=== PATIENT | male | born 1980 | race Two or more races ===

== ENCOUNTER 2022-10-16 18:09 | Emergency (ER) | payer SELFPAY ==
[~2022-10-16] VITALS: Ht 162.6 cm; Wt 95.5 kg
[2022-10-16 21:08] VITALS: BP 130/60; PULSE 77; RESP 18; TEMP 98.5
[2022-10-16] MEDS ORDERED: HYDROCODONE/ACETAMINOPHEN 5-325 MG TABLET PO ONE (21:15)
[2022-10-16] MEDS ORDERED: KETOROLAC TROMETHAMINE 60 MG/2 ML VIAL IM ONE (21:15)
[2022-10-16] MEDS ORDERED: IBUP-1554 PO (22:06)
== END 2022-10-16 22:22 | disposition home or self-care (01) ==
LOC: EMS 18:09
DX: S93.402A Sprain of unspecified ligament of left ankle, initial encounter (principal); S39.012A Strain of muscle, fascia and tendon of lower back, initial encounter; X58.XXXA Exposure to other specified factors, initial encounter; Y93.89 Activity, other specified; Y92.89 Other specified places as the place of occurrence of the external cause; Y99.8 Other external cause status
CPT/HCPCS: 99284; 72100; 73610; 96372; J1885